=== PATIENT | female | born 1945 | race American Indian/Alaskan Native ===

== ENCOUNTER 2020-11-24 13:29 | Outpatient (CLI) | payer MEDICARE, OTHER ==
--- NOTE | 2020-11-24 15:11 | Mammography Report ---
DIGITAL SCREENING MAMMOGRAM WITH CAD, 11/24/2020 CLINICAL INFORMATION / INDICATION: Routine screening mammography. SCREENING MAMMOGRAM TECHNIQUE: Digital bilateral 2D mammography was obtained in the craniocaudal and mediolateral obliqu e projections. This examination was interpreted with the benefit of Computer-Aided Detection analysis . COMPARISON: 11/14/2017 through 11/19/2019. FINDINGS: Breast Density: The breasts are heterogeneously dense, which may obscure small masses. Right breast scarring and associated biopsy clips are again noted. There are benign calcifications bi laterally, including breast arterial calcifications. No new suspicious abnormality is seen in either breast. IMPRESSION: No mammographic evidence of malignancy. Follow up recommendation: Routine yearly BI-RADS Category 2: Benign. A "normal" or negative report should not discourage follow up or biopsy of a clinically significant f inding. A written summary of these findings will be mailed to the patient. The patient will be entered into a mammography reporting system which will generate a reminder letter for the patient's next appointmen t at the appropriate interval. The [employer] recommends yearly mammograms starting at age 40 and continuing as l stan as a woman is in good health. Breast MRI is recommended for women with an approximate 20-25% or greater lifetime risk of breast cancer, including women with a strong family history of breast or ova fidelia cancer or who have been treated for Hodgkin's disease. Signer Name: Kevin Acharya MD Signed: 11/24/2020 3:06 PM Workstation Name: [id number]
== END 2020-11-24 13:30 | disposition home or self-care (01) ==
LOC: SPVWC 13:29
PROVIDERS: ATTEND Surgery
DX: Z12.31 Encounter for screening mammogram for malignant neoplasm of breast (principal)
CPT/HCPCS: 77067